=== PATIENT | female | born 1935 | race Hispanic/Latino ===

== ENCOUNTER 2017-10-15 13:14 | Emergency (ER) | payer MEDICARE, OTHER ==
[2017-10-15 14:25] LABS: Basophils # (Auto) 0.1 K/mm3 (0.0-0.1); Basophils % (Auto) 1.1 % (0.0-1.8); Eosinophils # (Auto) 0.1 K/mm3 (0.0-0.4); Hematocrit 37.3 % (30.3-42.9); Lymphocytes # (Auto) 1.3 K/mm3 (1.2-5.4); Lymphocytes % (Auto) 14.6 % (13.4-35.0); Mean Corpuscular HGB Conc 32 % (30-34); Mean Corpuscular Hemoglobin 32 pg (28-32); Mean Corpuscular Volume 99 fl (79-97); Monocytes # (Auto) 0.5 K/mm3 (0.0-0.8); Monocytes % (Auto) 6.1 % (0.0-7.3); Platelet Count 365 K/mm3 (140-440); Red Blood Count 3.78 M/mm3 (3.65-5.03); Red Cell Distribution Width 13.5 % (13.2-15.2)
[2017-10-15 16:05] LABS: BUN/Creatinine Ratio 40; Blood Urea Nitrogen 20 mg/dL (7-17); Calcium 9.6 mg/dL (8.4-10.2); Hemolysis Index 8
[2017-10-15 16:07] LABS: Alanine Aminotransferase 20 units/L (7-56)
[2017-10-15 16:20] LABS: Bilirubin,Direct < 0.2 mg/dL (0-0.2)
[2017-10-15] MEDS ORDERED: ANTIVERT PO ONE (16:39)
[2017-10-15] MEDS ORDERED: ZOFRAN ODT PO ONE (16:40)
--- NOTE | 2017-10-15 16:46 | XRay Report ---
FINAL REPORT PROCEDURE: XR CHEST 1V AP TECHNIQUE: Chest radiograph anteroposterior view. CPT 52458 HISTORY: Dizzy COMPARISON: No prior studies are available for comparison. FINDINGS: Heart: Normal. Mediastinum/Vessels: Aortic calcification. Lungs/Pleural space: No infiltrate, effusion, or pneumothorax. Bony thorax: No acute osseous abnormality. Life support devices: None. IMPRESSION: No radiographic evidence of acute cardiopulmonary abnormality.
--- NOTE | 2017-10-15 17:10 | Emergency Department Report ---
ED Dizziness HPI - General Chief Complaint: Dizziness Stated Complaint: NAUSEA/VOMITING/DIZZINES Time Seen by Provider: 10/15/17 16:15 Source: patient Mode of arrival: Wheelchair Limitations: No Limitations - History of Present Illness Initial Comments: While eating at [employer], patient got sick soon after finishing her meal. Her son estimates about 15 minutes after eating and then she got dizzy and vomited in his truck. Patient felt better after she vomited. She says her dizziness is gone as well. MD Complaint: dizziness History of Same: Yes History of Trauma: No Severity: mild Improves With: other (vomiting) Worsens With: nothing - Related Data Home Medications Medication Instructions Recorded Confirmed Last Taken Lovastatin Tab [Mevacor] 20 mg PO QPM 10/15/17 10/15/17 Unknown Metoprolol [Lopressor] 25 mg PO TID 10/15/17 10/15/17 Unknown Ranitidine HCl [Acid Control] 150 mg PO QHS 10/15/17 10/15/17 Unknown Valsartan [Diovan] 40 mg PO DAILY 10/15/17 10/15/17 Unknown traMADol [Ultram 50 MG tab] 50 mg PO PRN PRN 10/15/17 10/15/17 Unknown Previous Rx's Medication Instructions Recorded Last Taken Type Ondansetron [Zofran TAB] 4 mg PO Q8HR PRN 7 Days tablet 10/15/17 Unknown Rx Allergies Allergy/AdvReac Type Severity Reaction Status Date / Time codeine Allergy Unknown Verified 10/15/17 13:28 red dye Allergy Unknown Verified 10/15/17 13:28 Tetanus Vaccines and Toxoid Allergy Unknown Verified 10/15/17 13:28 yellow dye Allergy Unknown Verified 10/15/17 13:28 ED Review of Systems ROS: Stated complaint: NAUSEA/VOMITING/DIZZINES Other details as noted in HPI Comment: All other systems reviewed and negative Constitutional: denies: chills, fever Eyes: denies: eye pain, eye discharge, vision change ENT: denies: ear pain, throat pain Respiratory: denies: cough, shortness of breath, wheezing Cardiovascular: denies: chest pain, palpitations Endocrine: no symptoms reported Gastrointestinal: nausea, vomiting. denies: abdominal pain, diarrhea Genitourinary: denies: urgency, dysuria, discharge Musculoskeletal: denies: back pain, joint swelling, arthralgia Skin: denies: rash, lesions Neurological: vertigo. 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 - Surgical History Additional Surgical History: Hysterectomy - Social History Smoking Status: Former Smoker Substance Use Type: None - Medications Home Medications: Home Medications Medication Instructions Recorded Confirmed Last Taken Type Lovastatin Tab [Mevacor] 20 mg PO QPM 10/15/17 10/15/17 Unknown History Metoprolol [Lopressor] 25 mg PO TID 10/15/17 10/15/17 Unknown History Ondansetron [Zofran TAB] 4 mg PO Q8HR PRN 7 Days tablet 10/15/17 Unknown Rx Ranitidine HCl [Acid Control] 150 mg PO QHS 10/15/17 10/15/17 Unknown History Valsartan [Diovan] 40 mg PO DAILY 10/15/17 10/15/17 Unknown History traMADol [Ultram 50 MG tab] 50 mg PO PRN PRN 10/15/17 10/15/17 Unknown History ED Physical Exam - General Limitations: No Limitations General appearance: alert, in no apparent distress - Head Head exam: Present: atraumatic, normocephalic - Eye Eye exam: Present: normal appearance - ENT ENT exam: Present: mucous membranes moist, TM's normal bilaterally - Neck Neck exam: Present: normal inspection - Respiratory Respiratory exam: Present: normal lung sounds bilaterally. Absent: respiratory distress - Cardiovascular Cardiovascular Exam: Present: regular rate, normal rhythm. Absent: systolic murmur, diastolic murmur, rubs, gallop - GI/Abdominal GI/Abdominal exam: Present: soft, normal bowel sounds - Extremities Exam Extremities exam: Present: normal inspection - Back Exam Back exam: Present: normal inspection - Neurological Exam Neurological exam: Present: alert, oriented X3 - Psychiatric Psychiatric exam: Present: normal affect, normal mood - Skin Skin exam: Present: warm, dry, intact, normal color. Absent: rash ED Course Vital Signs 10/15/17 10/15/17 10/15/17 13:29 15:30 15:45 Temperature 97.5 F L Pulse Rate 56 L 56 L 54 L Respiratory 16 21 22 Rate Blood Pressure 161/76 144/71 123/62 O2 Sat by Pulse 97 97 98 Oximetry 10/15/17 10/15/17 16:00 16:15 Temperature Pulse Rate 53 L 57 L Respiratory 13 18 Rate Blood Pressure 136/72 136/72 O2 Sat by Pulse 100 100 Oximetry ED Medical Decision Making - Lab Data Result diagrams: 10/15/17 13:43 10/15/17 13:43 - Medical Decision Making Reviewed labs and xrays. No acute. Patient says she feels better with no dizziness nor N/V. - Differential Diagnosis Food Poisoning; Vertigo Critical care attestation.: If time is entered above; I have spent that time in minutes in the direct care of this critically ill patient, excluding procedure time. ED Disposition Clinical Impression: Food poisoning Disposition: [id number] TO HOME OR SELFCARE Is pt being admited?: No Does the pt Need Aspirin: No Condition: Stable Prescriptions: Ondansetron [Zofran TAB] 4 mg PO Q8HR PRN 7 Days tablet PRN Reason: Nausea And Vomiting Referrals: PRIMARY CARE, [Primary Care Provider] - 3-5 Days Time of Disposition: 18:25
[2017-10-15 18:49] VITALS: BP 138/70
== END 2017-10-15 18:47 | disposition home or self-care (01) ==
LOC: ED 13:14
DX: T62.91XA Toxic effect of unspecified noxious substance eaten as food, accidental (unintentional), initial encounter (principal); Z88.6 Allergy status to analgesic agent; Z91.041 Radiographic dye allergy status; Z88.1 Allergy status to other antibiotic agents; Z87.891 Personal history of nicotine dependence; Z90.710 Acquired absence of both cervix and uterus; Y92.89 Other specified places as the place of occurrence of the external cause
CPT/HCPCS: 36415; 71045; 80048; 80074; 84484; 85025; 93005; 93010; 99284; Q0162